=== PATIENT | male | born 1955 | race Caucasian/White ===

== ENCOUNTER → 2017-10-09 | Outpatient (CLI) | payer OTHER ==
[~2017-10-09] MED LIST: COUMADIN2.5 MG PO; LISINOPRIL10 MG PO; MOTRIN600 MG PO; PERCOCET 5/31 TABLET PO; TRAMADOL HCL E300 M1 PO; TYLENOL EXTRA500 MG PO; ULTRAM50 MG PO; VISTARIL25 MG PO; ZESTRIL10 MG PO
== END | disposition home or self-care (01) ==
LOC: RAD 16:19
DX: M47.892 Other spondylosis, cervical region (principal); M46.02 Spinal enthesopathy, cervical region; M89.8X8 Other specified disorders of bone, other site
CPT/HCPCS: 72040

== ENCOUNTER → 2017-12-12 | Outpatient (CLI) | payer OTHER ==
[~2017-12-12] VITALS: Ht 182.9 cm; Wt 90.7 kg
[~2017-12-12] MED LIST changes: +DURAGESIC12 MCG TD
== END | disposition home or self-care (01) ==
LOC: AMB 13:30
DX: K29.70 Gastritis, unspecified, without bleeding (principal); K57.30 Diverticulosis of large intestine without perforation or abscess without bleeding; K64.8 Other hemorrhoids; Z83.79 Family history of other diseases of the digestive system; R19.7 Diarrhea, unspecified; R10.33 Periumbilical pain; I10 Essential (primary) hypertension; Z87.891 Personal history of nicotine dependence
CPT/HCPCS: 88305; 88342 TC